=== PATIENT | female | born 1955 | race Caucasian/White ===

== ENCOUNTER → 2018-11-18 | Emergency (ER) | payer OTHER ==
[~2018-11-18] VITALS: Ht 172.7 cm; Wt 70.3 kg
--- OUTSIDE RECORDS SUMMARY | ~2018-11-18 | XMS | Encounter Summary ---
Demographics + + + | Address | [address] | | | [place] [address] | + + + | Home Phone | | + + + | Preferred Language | Unknown | + + + | Marital Status | Single | + + + | Uatsdin Affiliation | Unknown | + + + | Race | Unknown | + + + | Ethnic Group | Other Race | + + + Author + + + | Author | [facility] | + + + | Organization | [facility] | + + + | Address | Unknown | + + + | Phone | Unavailable | + + + Care Team Providers + +------+ + | Care Software Quality Automation Engineer Name | Role | Phone | + +------+ + PCP | Unavailable | + +------+ + Encounter Details +--------+ + + + + | Date | Type | Department | Care Team | Description | +--------+ + + + + | 06/23/ | Hospital | Dermatopathology | | | | 2012 | Encounter | [address] | | | | | | Mail Code: CH16D | | | | | | [facility] | | | | | | and Healing, 5th | | | | | | floor [place], [place] | | | | | | [address] | | | | | | [phone] | | | +--------+ + + + + Social History + +-------+ +--------+------+ | Tobacco Use | Types | Packs/Day | Years | Date | | | | | Used | | + +-------+ +--------+------+ | Never Assessed | | | | | + +-------+ +--------+------+ + + + | Sex Assigned at | Date Recorded | | | | + + + | Not on file | | + + + + + + + | Job Start Date | Occupation | Industry | + + + + | Not on file | Not on file | Not on file | + + + + + + + + | Travel History | Travel Start | Travel End | + + + + + + | No recent travel history available. | + + documented as of this encounter Plan of Treatment Not on filedocumented as of this encounter Procedures + +--------+ + + + | Procedure Name | Priori | Date/Time | Associated Diagnosis | Comments | | | ty | | | | + +--------+ + + + | DERMATOPATHOLOGY(WET | Routin | 06/23/2013 | | Results for this | | [facility]) | e | | | procedure are in the | | | | | | results section. | + +--------+ + + + documented in this encounter Results DERMATOPATHOLOGY(WET [facility]) (06/23/2013) + + + + + + | Component | Value | Ref Range | Performed | Pathologist | | | | | At | Signature | + + + + + + | DERMATOPATH | SOURCE OF SPECIMEN:A Rt. | | [facility] | | | OLOGY(WET | nasal ala, shave | | DERMATOPATH | | | MNT) | biopsySOURCE OF | | OLOGY | | | | SPECIMEN:B Rt. lower | | | | | | leg, 4mm punch | | | | | | biopsySOURCE OF | | | | | | SPECIMEN:C Rt. forearm, | | | | | | shave biopsy | | | | | | CLINICAL DESCRIPTION:A: | | | | | | New dark small papule; | | | | | | vascular papule vs | | | | | | melanoma.B: New red | | | | | | scaly pruritic papules; | | | | | | ? psoriasis, eczema, | | | | | | LP.C: New red indurated | | | | | | papule; inflamed SK, [place], | | | | | | SCC in situ; ? | | | | | | inflammatoryas ins sepc. | | | | | | B. GROSS | | | | | | DESCRIPTION:Received in | | | | | | formalin are three | | | | | | specimens labeled with | | | | | | the patient's name:A: | | | | | | Specimen is labeled "A: | | | | | | Rt nasal ala" and | | | | | | consists of an irregular | | | | | | shaveof erythematous | | | | | | skin, [id number]. The | | | | | | surgical margin is inked | | | | | | black; thetissue is | | | | | | entirely submitted in | | | | | | cassette A1.B: Specimen | | | | | | is labeled "B: Rt lower | | | | | | leg" and consists of 4mm | | | | | | punch ofpapular yellow | | | | | | skin, cut to a depth of | | | | | | 5mm. The surgical margin | | | | | | is inkedblack; the | | | | | | tissue is bisected; and | | | | | | entirely submitted in | | | | | | cassette B1.C: Specimen | | | | | | is labeled "C: Rt | | | | | | forearm" and consists of | | | | | | an irregular shaveof | | | | | | papular yellow skin, | | | | | | [id number]. The surgical | | | | | | margin is inked black; | | | | | | thetissue is trisected, | | | | | | and entirely submitted | | | | | | in cassette C1. | | | | | | MICROSCOPIC | | | | | | DESCRIPTION:In the right | | | | | | nasal ala biopsy, there | | | | | | is a papular lesion | | | | | | with thickenedcollagen | | | | | | bundles in the dermis | | | | | | arranged concentrically | | | | | | around | | | | | | follicularstructures | | | | | | associated with dilated | | | | | | blood vessels and | | | | | | stellate-shapedfibroblas | | | | | | ts. In the lower | | | | | | right leg biopsy, there | | | | | | is parakeratosis | | | | | | overlying | | | | | | spongiosiscontaining | | | | | | lymphocytes within an | | | | | | irregularly hyperplastic | | | | | | epidermis. Thereis a | | | | | | superficial perivascular | | | | | | lymphocytic | | | | | | infiltrate. In | | | | | | the right forearm | | | | | | biopsy, there is a | | | | | | small, fairly well | | | | | | circumscribed,densely | | | | | | inflamed epidermal | | | | | | neoplasm. Hyperkeratosis | | | | | | and parakeratosis | | | | | | arepresent overlying | | | | | | slightly papillated | | | | | | epidermal hyperplasia. | | | | | | The epithelialnuclei are | | | | | | small and uniform with | | | | | | a number of dyskeratotic | | | | | | keratinocytesand a | | | | | | dense superficial | | | | | | lymphocytic | | | | | | infiltrate. | | | | | | DIAGNOSIS:A: FIBROUS | | | | | | PAPULE OF THE | | | | | | NOSE. NOTE: In | | | | | | the right nasal ala | | | | | | biopsy, there is no | | | | | | evidence of | | | | | | melanoma. B: | | | | | | SPONGIOTIC | | | | | | DERMATITIS. | | | | | | NOTE: While not | | | | | | specific, the findings | | | | | | in the lower right leg | | | | | | biopsy arecharacteristic | | | | | | of spongiotic | | | | | | dermatitides including | | | | | | xerotic, nummular, | | | | | | andatopic dermatitis, | | | | | | among others. Clinical | | | | | | correlation is | | | | | | necessary. Thefindings | | | | | | are not typical of | | | | | | psoriasis or lichen | | | | | | planus. C: | | | | | | SEBORRHEIC KERATOSIS, | | | | | | INFLAMED. NOTE: | | | | | | The seborrheic keratosis | | | | | | is excised in these | | | | | | sections through | | | | | | theshave | | | | | | specimen. CRW: | | | | | | [id number] My | | | | | | electronic signature | | | | | | indicates that I have | | | | | | personally reviewed | | | | | | alldiagnostic slides, | | | | | | the gross and/or | | | | | | microscopic portion of | | | | | | thisreport and | | | | | | formulated the final | | | | | | diagnosis. | | | | | | Rendering | | | | | | Diagnostician: Robert | | | | | | paige Brewer Jr., | | | | | | MWardPathologistElectroni | | | | | | presley Signed | | | | | | 06/27/2013 6:17PM | | | | + + + + + + + + | Specimen | + + | | + + + + + + + | Performing | Address | City/State/Zipcode | Phone Number | | Organization | | | | + + + + + | [facility] | [address], [address] | [place] [address] | | | DERMATOPATHOLOGY | [address] | | | + + + + + documented in this encounter Visit Diagnoses Not on filedocumented in this encounter
--- OUTSIDE RECORDS SUMMARY | ~2018-11-18 | XMS | Encounter Summary ---
Demographics + + + | Address | [address] | | | [place] [address] | + + + | Home Phone | | + + + | Preferred Language | Unknown | + + + | Marital Status | Single | + + + | Yazdanism Affiliation | Unknown | + + + | Race | Unknown | + + + | Ethnic Group | Other Race | + + + Author + + + | Author | [facility] | + + + | Organization | [facility] | + + + | Address | Unknown | + + + | Phone | Unavailable | + + + Care Team Providers + +------+ + | Care Stable Hand Name | Role | Phone | + [...] [facility] | | | | | | [facility] | | | | | | and Healing, 5th | | | | | | floor [place], [place] | | | | | | [address] | | | | | | [phone] | | | +--------+ + + + [...] | | | | | | skin, [id number]. The | | | | | | [...] skin, | | | | | | [id number]. The surgical | | | | | [...] + | [facility] | [address], [address] | [place] [address] | | | DERMATOPATHOLOGY | [address] | | | + + + + + documented in this encounter Visit Diagnoses Not on filedocumented in this encounter
--- OUTSIDE RECORDS SUMMARY | ~2018-11-18 | XMS | Clinical Summary ---
Demographics + + + | Address | [address] | | | [place] [address] | + + + | Home Phone | | + + + | Preferred Language | Unknown | + + + | Marital Status | Single | + + + | Rastafari Affiliation | Unknown | + + + | Race | Unknown | + + + | Ethnic Group | Unknown | + + + Author + + + | Author | [facility] | | | and [place] | + + + | Organization | [facility] | | | and [place] | + + + | Address | Unknown | + + + | Phone | Unavailable | + + + Support + + +---------+ + | Name | Relationship | Address | Phone | + + +---------+ + | Jean Wiley | ECON | Unknown | | + + +---------+ + Care Team Providers + +------+ + | Care Cavalry Scout Name | Role | Phone | + +------+ + PP | Unavailable | + +------+ + Allergies No Known Allergies Medications + + + +---------+------+------+-------+ | Medication | Sig | Dispensed | Refills | Star | End | Statu | | | | | | t | Date | s | | | | | | Date | | | + + + +---------+------+------+-------+ | Calcium-Vitamin | one twice daily | | 0 | 09/1 | | Activ | | D-Vitamin K (CALCIUM | | | | 3/20 | | e | | + D + K) 750-500-40 | | | | 12 | | | | MG-UNT-MCG TABS | | | | | | | + + + +---------+------+------+-------+ | vitamin A (RA | liquid drops, two | | 0 | 09/1 | | Activ | | VITAMIN A) 25298 | daily | | | 3/20 | | e | | UNITS capsule | | | | 12 | | | + + + +---------+------+------+-------+ | Nutritional | one daily as needed | | 0 | 09/1 | | Activ | | Supplements (RA | | | | 3/20 | | e | | MELATONIN/B-6) 500-5 | | | | 12 | | | | MCG-MG TABS | | | | | | | + + + +---------+------+------+-------+ | estrogens, | Take 0.625-1.25 mg | | 0 | 09/1 | | Activ | | conjugated,-methylTE | by mouth Daily. | | | 3/20 | | e | | STOSTERone (EST | | | | 12 | | | | ESTROGENS-METHYLTEST | | | | | | | | HS) 0.625-1.25 mg | | | | | | | | per tablet | | | | | | | + + + +---------+------+------+-------+ | progesterone | 12 days one every | | 0 | 09/1 | | Activ | | (PROMETRIUM) 100 MG | other month | | | 3/20 | | e | | capsule | | | | 12 | | | + + + +---------+------+------+-------+ | Cod Liver Oil | one twice daily | | 0 | 09/1 | | Activ | | 5000-500 UNIT/5ML | | | | 3/20 | | e | | OIL | | | | 12 | | | + + + +---------+------+------+-------+ Active Problems + + + | Problem | Noted Date | + + + | OBSTRUCTIVE SLEEP APNEA | 09/04/2011 | + + + Social History + +-------+ [...] recent travel history available. | + + Last Filed Vital Signs + + + + | Vital Sign | Reading | Time Taken | + + + + | Blood Pressure | 102/64 | 12/21/2011 0000 PDT | + + + + | Pulse | - | - | + + + + | Temperature | - | - | + + + + | Respiratory Rate | - | - | + + + + | Oxygen Saturation | - | - | + + + + | Inhaled Oxygen | - | - | | Concentration | | | + + + + | Weight | 71 kg (156 lb 8 oz) | 12/21/2011 0000 PDT | + + + + | Height | 172.7 cm (5' 8") | 09/04/2011 0000 PST | + + + + | Body Mass Index | 23.8 | 09/04/2011 0000 PST | + + + + Plan of Treatment + + + + + | Health Maintenance | Due Date | Last Done | Comments | + + + + + | Vaccine: | | | | | Dtap/Tdap/Td (1 - | 6 | | | | Tdap) | | | | + + + + + | Cervical Cancer | | | | | Screening (Pap) | 7 | | | + + + + + | Vaccine: Zoster (1 | | | | | of 2) | 7 | | | + + + + + | Vaccine: Influenza | | | | | (Season Ended) | 9 | | | + + + + + Results Not on filefrom Last 3 Months
--- OUTSIDE RECORDS SUMMARY | ~2018-11-18 | XMS | Clinical Summary ---
Demographics + + + | Address | [address] | | | [place] [address] | + + + | Home Phone | | + + + | Preferred Language | Unknown | + + + | Marital Status | Single | + + + | Buddhist Affiliation | Unknown | + + + | Race | Unknown | + + + | Ethnic Group | Unknown | + + + Author + + + | Author | [facility] | | | and [place] | + + + | Organization | [facility] | | | and [place] [...] Team Providers + +------+ + | Care Him Assistant Name | Role | Phone | + [...] | | Activ | | VITAMIN A) 71800 | daily | | | 3/20 | [...]
--- OUTSIDE RECORDS SUMMARY | ~2018-11-18 | XMS | Clinical Summary ---
Demographics + + + | Address | [address] | | | [place] [address] | + + + | Home Phone | | + + + | Preferred Language | Unknown | + + + | Marital Status | Single | + + + | Latter-Day Affiliation | Unknown | + + + | Race | Unknown | + + + | Ethnic Group | Other Race | + + + Author + + + | Author | [facility] D[facility]atology [facility] | + + + | Organization | [facility] | + + + | Address | Unknown | + + + | Phone | Unavailable | + + + Care Team Providers + +------+ + | Care Information Management Specialist Name | Role | Phone | + +------+ + PP | Unavailable | + +------+ + Source Comments [facility] is fully live on both [facility] Ambulatory and [facility] InPatient.[facility] Allergies Not on File Medications Not on file Active Problems Not on file Social History + +-------+ +--------+------+ | Tobacco [...] recent travel history available. | + + Plan of Treatment Not on file Results Not on filefrom Last 3 Months Insurance +-------+--------+ +--------+ + +------+ | Payer | Benefi | Subscriber | Effect | Phone | Address | Type | | | t Plan | ID | [place] | | | | | | / | | Dates | | | | | | Group | | | | | | +-------+--------+ +--------+ + +------+ | [employer] | MODA | xxxxxxxxx | Effect | [phone] | [address] | PPO | | | [place] | | [place] | 4 | [phone] | | | | [place] | | for | | [place], | | | | | | all | | [place] [address] | | | | | | dates | | | | +-------+--------+ +--------+ + +------+ + +--------+ +--------+ + + | Guarantor Name | Accoun | Relation to | Date | Phone | Billing Address | | | t Type | Patient | of | | | | | | | | | | + +--------+ +--------+ + + | Mishel Barragan V | Person | Self [birth year] | [address] | | | al/Fam | | 1955 | [phone] | [place] | | | [place] | | | 0 (Home) | [phone] | + +--------+ +--------+ + +"
--- OUTSIDE RECORDS SUMMARY | ~2018-11-18 | XMS | Clinical Summary ---
Demographics + + + | Address | [address] | | | [place] [address] | + + + | Home Phone | | + + + | Preferred Language | Unknown | + + + | Marital Status | Single | + + + | Cheondoism Affiliation | Unknown | + + + | Race | Unknown | + + + | Ethnic Group | Other Race | + + + Author + + + | Author | [facility] Dermatology [facility] | + + + | Organization | [facility] | + + + | Address | Unknown | + + + | Phone | Unavailable | + + + Care Team Providers + +------+ + | Care Photovoltaic Technician Name | Role | Phone | + +------+ + PP | Unavailable | + +------+ + Source Comments [facility] is fully live on both [facility] Ambulatory and [facility] InPatient.[facility] Allergies Not on File Medications Not on [...] [place] | | [place] | 4 | [phone] | | | | [place] | | for | | [place], | | | | | | all | | [place] [address] | | | | | | dates [...] sandi | | | 0 (Home) | [phone] | + +--------+ +--------+ + +"
== END ==
LOC: ED 21:21
DX: R51 Headache (principal); Z53.21 Procedure and treatment not carried out due to patient leaving prior to being seen by health care provider